=== PATIENT | female | born 1995 | race Caucasian/White ===

== ENCOUNTER 2017-07-06 11:19 | Emergency (ER) | payer MEDICAID ==
[~2017-07-06] VITALS: Ht 167.6 cm; Wt 72.6 kg
--- NOTE | 2017-07-06 11:30 | NUR ---
PT BIB AMBULANCE. MEDICS STATE PT WAS ANXIOUS AND HYPERVENTILATING AT HOME DUE TO FAMILY ISSUES. MEDICS STATE PT WAS "HOLDING HER BREATH" AND [facility] INHL USED IN ROUTE. PT WAS REPONSIVE AFTER [facility] INHL. PT ARRIVED DROWSY AND APPEARS TO BE SELECTIVELY RESPONDING AND FOLLOWING COMMANDS. PT'S FIANCE IS AT BEDSIDE AND STATES PT BECAME ANXIOUS DUE TO "STRESS AT HOME". PT IS DIAPHORETIC AND CLOTHES SATURATED UPON ARRIVAL. DR. MURPHY IS AT BEDSIDE FOR MSE.
--- NOTE | 2017-07-06 11:45 | NUR ---
PT STARTED ON IVF PER MD ORDER. SEE EMAR
[2017-07-06 11:54] LABS: BASOPHIL % 0.5 % (0-2); PLATELET COUNT 212 x10^3mcL (130-400); RED CELL DISTRIBUTION WIDTH 13.1 % (11.5-14.5)
[2017-07-06 11:59] LABS: CALCIUM 9.8 mg/dL (8.5-10.1); CARBON DIOXIDE 26.6 mmol/L (21-32); CHLORIDE SERUM 104 mmol/L (98-107); CREATININE SERUM 0.9 mg/dL (0.6-1.0); GFR1 > 60 mL/min; GLUCOSE SERUM 91 mg/dL (74-106); POTASSIUM SERUM 3.6 mmol/L (3.5-5.1); SODIUM SERUM 141 mmol/L (136-145)
[2017-07-06 11:59] LABS: UA SPECIFIC GRAVITY 1.015 (1.005-1.035); microscopic required? YES; urine erythrocyte NEGATIVE (NEGATIVE)
[2017-07-06 12:04] LABS: ALBUMIN 4.4 g/dL (3.4-5.0); ALKALINE PHOSPHATASE 93 U/L (46-116); ALT/SGPT 19 U/L (14-59); AST/SGOT 14 U/L (15-37); BILIRUBIN TOTAL 0.55 mg/dL (0.20-1.00); TOTAL PROTEIN, SERUM 8.4 g/dL (6.4-8.2)
--- NOTE | 2017-07-06 12:07 | NUR ---
PT RETURNED FROM CT. PT IS MORE AWAKE AT THIS TIME. ASKED IF PT USES DRUGS OR ALCOHOL, PT DENIES. B/L PUPILS SLUGGISH BUT REACTIVE.
[2017-07-06 12:11] LABS: AMPHETAMINE QUAL UR NONE DETECTED (NEG <=1000)
--- NOTE | 2017-07-06 12:43 | NUR ---
PT IS AWAKE AND ALERT, TALKING AND OBEYING COMMANDS. FIANCE IS AT BEDSIDE. NO S/S OF DISTRESS NOTED.
--- NOTE | 2017-07-06 13:00 | NUR ---
PER DR. MURPHY HOLD OFF ON ADMIT AT THIS TIME; ORDERED PT A DIET TRAY
--- NOTE | 2017-07-06 13:04 | NUR ---
REPORT GIVEN TO BRINA ANTHONY TO ASSUME CARE.
--- NOTE | 2017-07-06 13:10 | NUR ---
RECEIVED REPORT FROM DAY RN.
--- NOTE | 2017-07-06 13:29 | NUR ---
TRAY OF FOOD GIVEN TO THE PATIENT ORDERED PER DOCTOR.
[2017-07-06 13:38] LABS: CHOLESTEROL/HDL RATIO 3.5; PHOSPHOROUS 3.4 mg/dL (2.5-4.9)
[2017-07-06 13:44] LABS: T3 TOTAL 1.22 ng/mL
--- NOTE | 2017-07-06 14:15 | NUR ---
PT STATED SHE IS STILL THINKING ABOUT STAYING OR SIGNING AMA.
[2017-07-06 14:32] LABS: FREE T4 1.26 ng/dL (0.76-1.46); FREE THYROXINE INDEX 4.1 ug/dL (1.4-4.5); T4(THYROXINE) 12.1 ug/dL (4.7-13.3)
--- NOTE | 2017-07-06 15:04 | NUR ---
PT SIGNING OUT AMA
[2017-07-06 15:15] VITALS: BP 131/73
== END 2017-07-06 15:15 | disposition left against medical advice (07) ==
LOC: ED 11:19 → DU 12:46 → ED 12:46
PROVIDERS: Emergency Medicine; Family Medicine Sports Medicine
DX: G92 Toxic encephalopathy (principal); Z88.1 Allergy status to other antibiotic agents
CPT/HCPCS: 82962; 83880; 84439; G0480; J7030; Q0092